=== PATIENT | female | born 1940 | race African-American/Black ===

== ENCOUNTER 2017-11-19 13:41 | Inpatient (IN) | payer OTHER, MEDICARE ==
[~2017-11-19] VITALS: Ht 167.6 cm; Wt 79.5 kg
[2017-11-19 14:21] VITALS: BP 157/74; PULSE 82; RESP 16; TEMP 97.8; O2SAT 100
--- NOTE | 2017-11-19 15:16 | RADRPT ---
EXAM DATE/TIME: 11/19/2017 14:51 [place] COMPARISON: No previous studies available for comparison. INDICATIONS : Patient states surgery on right ankle, after ankle has been in the boot for 1 month she has a wound o n ankle. Complains of pain and swelling. MEDICAL HISTORY : None. SURGICAL HISTORY : ORIF right ankle ENCOUNTER: Initial ACUITY: 1 month PAIN SCORE: 3/10 LOCATION: Right ankle FINDINGS: Three view exam was performed of the right ankle. There is evidence of previous internal fixation of the distal fibula and medial malleolus for previous fractures. No acute fracture or joint dislocation is demonstrated. There is good alignment at the mortise joint. There is nonspecific diffuse soft tis alfredo swelling around the ankle. The hardware is grossly intact. CONCLUSION: Diffuse soft tissue swelling. James White MD on November 19, 2017 at 15:13 Board Certified Radiologist. This report was verified electronically.
[2017-11-19 17:08] LABS: AUTOMATED NEUTROPHIL # 6.8 TH/MM3 (1.8-7.7); BASOPHIL # 0.1 TH/MM3 (0-0.2); BASOPHIL % 0.6 % (0.0-2.0); EOSINOPHIL # 0.2 TH/MM3 (0-0.4); EOSINOPHIL % 1.8 % (0.0-4.0); HEMATOCRIT 37.2 % (35.0-46.0); LYMPH % 20.8 % (9.0-44.0); MEAN CELL VOLUME 91.8 FL (80.0-100.0); MEAN CORPUSCULAR HEMOGLOBIN 29.7 PG (27.0-34.0); MEAN CORPUSCULAR HGB CONC 32.4 % (32.0-36.0); MEAN PLATELET VOLUME 8.1 FL (7.0-11.0); MONO % 6.4 % (0.0-8.0); MONOCYTE # 0.6 TH/MM3 (0-0.9); NEUT % 70.4 % (16.0-70.0); PLATELET COUNT 324 TH/MM3 (150-450); RED BLOOD COUNT 4.05 MIL/MM3 (4.00-5.30); RED CELL DISTRIBUTION WIDTH 15.7 % (11.6-17.2); WHITE BLOOD COUNT 9.7 TH/MM3 (4.0-11.0)
[2017-11-19 17:25] LABS: INTERNATIONAL NORMALIZED RATIO 1.1 RATIO
[2017-11-19 17:33] LABS: ALBUMIN 3.6 GM/DL (3.4-5.0); ALT (GPT) 16 U/L (10-53); AST (GOT) 14 U/L (15-37); BICARBONATE 28.8 MEQ/L (21.0-32.0); BLOOD UREA NITROGEN 9 MG/DL (7-18); CALCIUM 9.4 MG/DL (8.5-10.1); CHLORIDE 106 MEQ/L (98-107); CREATININE 0.64 MG/DL (0.50-1.00); GLOMERULAR FILTRATION RATE 109 ML/MIN (>89); GLUCOSE,RANDOM 79 MG/DL (74-106); SODIUM (NA) 143 MEQ/L (136-145)
[2017-11-19 17:36] LABS: ALKALINE PHOSPHATASE 107 U/L (45-117); TOTAL BILIRUBIN ADULT 0.8 MG/DL (0.2-1.0); TOTAL PROTEIN 7.1 GM/DL (6.4-8.2)
[2017-11-19] MEDS ORDERED: ceFAZolin 2 GM PREMIX 50 ML IV ONE (18:45)
--- NOTE | 2017-11-19 18:45 | PD ---
HPI Chief Complaint: Wound/Suture/Staple Re-Check Time Seen by Provider: 18:30 Travel History International Travel<30 days: No Contact w/Intl Traveler<30days: No Traveled to known affect area: No History of Present Illness HPI 77-year-old female patient presents to the ER today, had ankle ORIF done by Dr. Brambila a month ago for ankle fracture, and states that she had worn boots 2 days ago, and it was rubbing on the skin, and the wound opened up over her ORIF site. She had been seen by the office today and they told her to come straight to the hospital to be admitted for IV antibiotics. They also want Dr. Sullivan to be consulted on the case. She denies fevers or any other injuries. Modifying Factors: None Associated Signs & Symptoms: Wound at previous ORIF ankle fracture site Risk Factors: None PFSH Past Medical History Cardiovascular Problems: Yes Social History Tobacco Use: No Allergies-Medications (Allergen,Severity, Reaction): Coded Allergies: No Known Allergies (Unverified , 11/19/17) Review of Systems Except as stated in HPI: all other systems reviewed are Neg Physical Exam Narrative GENERAL: Pleasant elderly -[place] female patient currently in no acute distress. Awake and oriented 3. SKIN: Focused skin assessment warm/dry. HEAD: Atraumatic. Normocephalic. EYES: Pupils equal and round. No scleral icterus. No injection or drainage. ENT: No nasal bleeding or discharge. Mucous membranes pink and moist. NECK: Trachea midline. No JVD. CARDIOVASCULAR: Regular rate and rhythm. No murmur appreciated. RESPIRATORY: No accessory muscle use. Clear to auscultation. Breath sounds equal bilaterally. GASTROINTESTINAL: Abdomen soft, non-tender, nondistended. Hepatic and splenic margins not palpable. MUSCULOSKELETAL: No obvious deformities. No clubbing. No cyanosis. Bilateral pitting edema of the legs with the right greater than left. There is a 3 cm wound over the right ankle lateral malleolus. I do not see obvious hardware. NEUROLOGICAL: Awake and alert. No obvious cranial nerve deficits. Motor grossly within normal limits. Normal speech. PSYCHIATRIC: Appropriate mood and affect; insight and judgment normal. Data Data Last Documented VS Vital Signs Date Time Temp Pulse Resp B/P (MAP) Pulse Ox O2 Delivery O2 Flow Rate FiO2 11/19/17 14:21 97.8 82 16 157/74 (101) 100 Orders Orders Complete Blood Count With Diff (11/19/17 14:24) Comprehensive Metabolic Panel (11/19/17 14:24) Prothrombin Time / Inr (Pt) (11/19/17 14:24) Act Partial Throm Time (Ptt) (11/19/17 14:24) Blood Culture (11/19/17 14:24) Ankle, Complete ([id number]) (11/19/17 ) Cefazolin 2 Gm Premix (Ancef 2 Gm Premix (11/19/17 18:45) Consult Orthopedic (11/19/17 ) Admit Order (Ed Use Only) (11/19/17 18:40) Labs Laboratory Tests Test 11/19/17 16:15 White Blood Count 9.7 TH/MM3 Red Blood Count 4.05 MIL/MM3 Hemoglobin 12.0 GM/DL Hematocrit 37.2 % Mean Corpuscular Volume 91.8 FL Mean Corpuscular Hemoglobin 29.7 PG Mean Corpuscular Hemoglobin Concent 32.4 % Red Cell Distribution Width 15.7 % Platelet Count 324 TH/MM3 Mean Platelet Volume 8.1 FL Neutrophils (%) (Auto) 70.4 % Lymphocytes (%) (Auto) 20.8 % Monocytes (%) (Auto) 6.4 % Eosinophils (%) (Auto) 1.8 % Basophils (%) (Auto) 0.6 % Neutrophils # (Auto) 6.8 TH/MM3 Lymphocytes # (Auto) 2.0 TH/MM3 Monocytes # (Auto) 0.6 TH/MM3 Eosinophils # (Auto) 0.2 TH/MM3 Basophils # (Auto) 0.1 TH/MM3 CBC Comment DIFF FINAL Differential Comment Prothrombin Time 11.0 SEC Prothromb Time International Ratio 1.1 RATIO Activated Partial Thromboplast Time 25.5 SEC Blood Urea Nitrogen 9 MG/DL Creatinine 0.64 MG/DL Random Glucose 79 MG/DL Total Protein 7.1 GM/DL Albumin 3.6 GM/DL Calcium Level 9.4 MG/DL Alkaline Phosphatase 107 U/L Aspartate Amino Transf (AST/SGOT) 14 U/L Alanine Aminotransferase (ALT/SGPT) 16 U/L Total Bilirubin 0.8 MG/DL Sodium Level 143 MEQ/L Potassium Level 3.7 MEQ/L Chloride Level 106 MEQ/L Carbon Dioxide Level 28.8 MEQ/L Anion Gap 8 MEQ/L Estimat Glomerular Filtration Rate 109 ML/MIN [facility] Medical Decision Making Medical Screen Exam Complete: Yes Emergency Medical Condition: Yes Medical Record Reviewed: Yes Differential Diagnosis Open wound to the right ankle/previous ORIF site Narrative Course Lab work has been done and IV antibiotics were initiated in the ER after cultures have been drawn. Case is discussed with Dr. Redding for admission. Orthopedics Dr. Sullivan has been consulted for the case. Diagnosis Primary Impression: Open ankle wound Admitting Information Admitting Physician Requests: Admit Arlene Youssef MD Nov 19, 2017 18:45
[2017-11-19] MEDS ORDERED: SODIUM CHLOR 0.45% 1000 ML INJ 1,000 ML IV SCH (18:55)
[2017-11-19] MEDS ORDERED: SODIUM CHLORIDE 0.9% FLUSH 10 ML FLUSH IV FLUSH PRN (19:00)
[2017-11-19] MEDS ORDERED: SENNOSIDES 8.6 MG TAB PO PRN (19:00)
[2017-11-19] MEDS ORDERED: LACTULOSE SYRUP 20 GM/30 ML CUP PO PRN (19:00)
[2017-11-19] MEDS ORDERED: MAGNESIUM HYDROXIDE SUSP 30 ML CUP PO PRN (19:00)
[2017-11-19] MEDS ORDERED: BISACODYL 10 MG SUPP RECTAL PRN (19:00)
[2017-11-19] MEDS ORDERED: ONDANSETRON HCL 4 MG/2 ML VIAL IVP PRN (19:00)
[2017-11-19] MEDS ORDERED: NALOXONE HCL 0.4 MG/ML AMP IV PUSH PRN (19:00)
[2017-11-19] MEDS ORDERED: ASPI81CH7 CHEW (19:14)
[2017-11-19] MEDS ORDERED: PLAV75TA29 PO (19:14)
[2017-11-19] MEDS ORDERED: LISI2.5T3 PO (19:14)
[2017-11-19] MEDS ORDERED: CARV3.12 PO (19:14)
[2017-11-19] MEDS ORDERED: ATOR10TA15 PO (19:14)
[2017-11-19] MEDS ORDERED: Vancomycin Consult Pharmacy 1 EA OTHER SCH (19:15)
[2017-11-19 19:30] VITALS: BP 158/70; PULSE 71; RESP 16; O2SAT 100
[2017-11-19] MEDS: SODIUM CHLORIDE 0.9% FLUSH 10 ML FLUSH IV FLUSH SCH (21:00)
[2017-11-19] MEDS ORDERED: [UNRECOGNIZED DRUG - REMARK] SCH (21:15)
[2017-11-19 22:40] VITALS: BP 179/86; PULSE 79; RESP 20; TEMP 97.9; O2SAT 100
[2017-11-20 00:41] VITALS: BP 167/94; PULSE 81; RESP 20; TEMP 98.2; O2SAT 97
[2017-11-20] MEDS ORDERED: ENALAPRILAT 2.5 MG/2 ML VIAL IV PUSH PRN (01:15)
[2017-11-20] MEDS: CARVEDILOL 3.125 MG TAB PO SCH ×2 (01:22→08:42)
[2017-11-20] MEDS ORDERED: PILL SPLITTER OTHER PRN (01:30)
--- NOTE | 2017-11-20 01:38 | HHI.HP ---
[facility] Ryan Shepard, DO Admission Diagnosis Ankle wound/status post ankle ORIF Diagnoses: (1) Open ankle wound Chief Complaint: Right ankle wound s/p ORIF 10/06/17 Travel History International Travel<30 Days: No Contact w/Intl Traveler <30 Da: No Traveled to Known Affected Are: No History of Present Illness Ms. Cárdenas is a 77-year-old female with a past medical history of coronary artery disease status post stent placement [address] Parks, hypertension , and hyperlipidemia who presented to the emergency room by Dr. Sullivan for evaluation of an open wound to right ankle which had undergone ORIF following fracture on 10/06/2017. Diffuse soft tissue swelling noted around right ankle on x-ray in the ER. The patient is admitted to [facility] for medical management of comorbid conditions with consultation to orthopedics. The patient is seen in the ER overflow area. She reports having slipped while getting out of the shower and falling onto 11/19/2017 with subsequent right ankle fracture. She had ORIF of the right ankle on 10/06/[address] Brambila. [facility] and remained there for about 3 weeks. She was discharged home around the first of the month and was doing fairly well other than occasional pain in the lateral right malleoli region from friction caused by the orthotic boot she was wearing. She states she had a sock over the area never took the sock off until Saturday and at that time she looked at it became concerned. She went to see Dr. Sullivan on Sunday 11/[address] Brambila was not available. He advised that she come directly to the emergency room for IV antibiotics and possible removal of hardware. The patient denies any pain. Her original surgery was done at [facility]. She denies any fever, malaise, weakness, shortness of breath, chest pain, nausea, vomiting, or diarrhea. Review of Systems Except as stated in HPI: all other systems reviewed are Neg Past Family Social History Past Medical History Coronary artery disease status post stent placement Hypertension Hyperlipidemia Recent right ankle fracture Denies diabetes mellitus, COPD or respiratory problems, liver or kidney problems , DVT, PE, CVA, seizures, thyroid problems, or cancer . Past Surgical History Coronary artery disease status post stent placement [address] Parks Appendectomy Right ankle ORIF by Dr. Rodriguez 10/06/2017 . Reported Medications Reported Meds & Active Scripts Active Reported Atorvastatin (Atorvastatin Calcium) 10 Mg Tab Unknown Dose PO HS -not sure of exact dose will need to confirm in the morning Plavix (Clopidogrel Bisulfate) 75 Mg Tab 75 Mg PO DAILY Aspirin Children's (Aspirin) 81 Mg Chew 81 Mg CHEW DAILY Carvedilol 3.125 Mg Tab Unknown Dose PO DAILY -not sure of exact dose and will need to confirm in the morning Lisinopril 2.5 Mg Tab 2.5 Mg PO DAILY . Allergies: Coded Allergies: No Known Allergies (Unverified , 11/19/17) Family History Mother with hypertension No family history of coronary artery disease . Social History Tobacco: Denies Alcohol: Occasional glass of wine Illicit Drugs: Denies . Physical Exam Vital Signs Vital Signs Date Time Temp Pulse Resp B/P (MAP) Pulse Ox O2 Delivery O2 Flow Rate FiO2 11/20/17 00:41 98.2 81 20 167/94 (118) 97 11/19/17 22:40 97.9 79 20 179/86 (117) 100 11/19/17 19:30 71 16 158/70 (99) 100 Room Air 11/19/17 14:21 97.8 82 16 157/74 (101) 100 Physical Exam CONSTITUTIONAL: This is a well-nourished, well-developed very pleasant female patient, in no apparent distress. INTEGUMENTARY: Approximately 2" x 1 cm irregularly-shaped wound to the right lower extremity superior to the lateral malleolus; no erythema noted, no infection noted HEAD: Atraumatic. Normocephalic. EYES: No scleral icterus. No injection or drainage. ENT: Nose without bleeding, purulent drainage. NECK: Trachea midline. No JVD. CARDIOVASCULAR: Regular rate and rhythm without murmurs, gallops, or rubs. RESPIRATORY: Clear to auscultation. Breath sounds equal bilaterally. No wheezes , rales, or rhonchi. GASTROINTESTINAL: Abdomen soft, non-tender, nondistended. No guarding. MUSCULOSKELETAL: Extremities without clubbing, cyanosis. No calf tenderness. Negative Homans sign bilaterally. Right lower extremity with intact sensation, able to wiggle toes, capillary refill less than 3 seconds. Bilateral dorsalis pedis is +2. NEUROLOGICAL: Awake and alert. Motor and sensory grossly within normal limits. Normal speech. . Laboratory Laboratory Tests Test 11/19/17 16:15 White Blood Count 9.7 Red Blood Count 4.05 Hemoglobin 12.0 Hematocrit 37.2 Mean Corpuscular Volume 91.8 Mean Corpuscular Hemoglobin 29.7 Mean Corpuscular Hemoglobin Concent 32.4 Red Cell Distribution Width 15.7 Platelet Count 324 Mean Platelet Volume 8.1 Neutrophils (%) (Auto) 70.4 Lymphocytes (%) (Auto) 20.8 Monocytes (%) (Auto) 6.4 Eosinophils (%) (Auto) 1.8 Basophils (%) (Auto) 0.6 Neutrophils # (Auto) 6.8 Lymphocytes # (Auto) 2.0 Monocytes # (Auto) 0.6 Eosinophils # (Auto) 0.2 Basophils # (Auto) 0.1 CBC Comment DIFF FINAL Differential Comment Prothrombin Time 11.0 Prothromb Time International Ratio 1.1 Activated Partial Thromboplast Time 25.5 Blood Urea Nitrogen 9 Creatinine 0.64 Random Glucose 79 Total Protein 7.1 Albumin 3.6 Calcium Level 9.4 Alkaline Phosphatase 107 Aspartate Amino Transf (AST/SGOT) 14 Alanine Aminotransferase (ALT/SGPT) 16 Total Bilirubin 0.8 Sodium Level 143 Potassium Level 3.7 Chloride Level 106 Carbon Dioxide Level 28.8 Anion Gap 8 Estimat Glomerular Filtration Rate 109 Date/Time Source Procedure Growth Status 11/19/17 16:15 Blood Peripheral Aerobic Blood Culture Pending Received 11/19/17 16:15 Blood Peripheral Anaerobic Blood Culture Pending Received Result Diagram: 11/19/17 1615 11/19/17 1615 Imaging Last Impressions Ankle X-Ray 11/19/17 0000 Signed Impressions: Service Date/Time: Sunday, November 19, 2017 14:51 - CONCLUSION: Diffuse soft tissue swelling. James White MD . Caprini VTE Risk Assessment Caprini VTE Risk Assessment: Mod/High Risk (score >= 2) Caprini Risk Assessment Model Point Value = 1 Point Value = 2 Point Value = 3 Point Value = 5 Age 41-60 Minor surgery BMI > 25 kg/m2 Swollen legs Varicose veins or History of unexplained or recurrent spontaneous Oral contraceptives or hormone replacement Sepsis (< 1 month) Serious lung disease, including pneumonia (< 1 month) Abnormal pulmonary function Acute myocardial infarction Congestive heart failure (< 1 month) History of inflammatory bowel disease Medical patient at bed rest Age 61-74 Arthroscopic surgery Major open surgery (> 45 min) Laparoscopic surgery (> 45 min) Malignancy Confined to bed (> 72 hours) Immobilizing plaster cast Central venous access Age >= 75 History of VTE Family history of VTE Factor V Leiden Prothrombin [id number] Lupus anticoagulant Anticardiolipin antibodies Elevated serum homocysteine Heparin-induced thrombocytopenia Other congenital or acquired thrombophilia Stroke (< 1 month) Elective arthroplasty Hip, pelvis, or leg fracture Acute spinal cord injury (< 1 month) Prophylaxis Regimen Total Risk Factor Score Risk Level Prophylaxis Regimen 0-1 Low Early ambulation 2 Moderate Order ONE of the following: *Sequential Compression Device (SCD) *Heparin 5000 units SQ BID 3-4 Higher Order ONE of the following medications: *Heparin 5000 units SQ TID *Enoxaparin/Lovenox 40 mg SQ daily (WT < 150 kg, CrCl > 30 mL/min) *Enoxaparin/Lovenox 30 mg SQ daily (WT < 150 kg, CrCl > 10-29 mL/min) *Enoxaparin/Lovenox 30 mg SQ BID (WT < 150 kg, CrCl > 30 mL/min) AND/OR *Sequential Compression Device (SCD) 5 or more Highest Order ONE of the following medications: *Heparin 5000 units SQ TID (Preferred with Epidurals) *Enoxaparin/Lovenox 40 mg SQ daily (WT < 150 kg, CrCl > 30 mL/min) *Enoxaparin/Lovenox 30 mg SQ daily (WT < 150 kg, CrCl > 10-29 mL/min) *Enoxaparin/Lovenox 30 mg SQ BID (WT < 150 kg, CrCl > 30 mL/min) AND *Sequential Compression Device (SCD) Assessment and Plan Problem List: (1) Open ankle wound ICD Code: S91.009A - Unspecified open wound, unspecified ankle, initial encounter Status: Acute Assessment and Plan Ms. Cárdenas is a 77-year-old female with a past medical history of coronary artery disease status post stent placement [address] Parks, hypertension , and hyperlipidemia who presented to the emergency room by Dr. Sullivan for evaluation of an open wound to right ankle which had undergone ORIF following fracture on 10/06/2017. Diffuse soft tissue swelling noted around right ankle on x-ray in the ER. The patient is admitted to [facility] for medical management of comorbid conditions with consultation to orthopedics. Open wound to right ankle status post ORIF on 10/06/2017 -Vancomycin with pharmacy consult for therapeutic dosing and monitoring -Clean dry dressing to cover wound for now -Consultation to Dr. Sullivan, orthopedic surgeon, as requested Coronary artery disease status post stent 3 years ago -Hold Plavix and aspirin until after orthopedic evaluation in a.m. -Monitor IandO qshift -Continuous cardiac telemetry to monitor for arrhythmia -Patient unsure of carvedilol dose but will continue at 3.125 every 12 hours p.o. (lowest dose) and will monitor -will need to clarify carvedilol dose with patient's son in a.m. -We will also continue cheikh inhibitor lisinopril 2.5 mg p.o. daily Hypertension -Patient very concerned about her systolic blood pressure being in the 160s as it is normally in the 120s -Enalapril 2.5 mg IV every 8 hours as needed for systolic blood pressure greater than 160 or diastolic blood pressure greater than 95 -Continue carvedilol and lisinopril as above -Monitor trends and blood pressure and adjust treatment as indicated DVT prophylaxis -SCDs/teds to nonoperative leg -hold chemoprophylaxis due to possibility of hardware removal -await recommendations from orthopedic surgeon Discussed Condition With Dr. Coyle, patient, and RN Physician Certification 2 Midnight Certification Type: Admission for Inpatient Services Order for Inpatient Services The services are ordered in accordance with Medicare regulations or non- Medicare payer requirements, as applicable. In the case of services not specified as inpatient-only, they are appropriately provided as inpatient services in accordance with the 2-midnight benchmark. Estimated LOS (days): 3 days is the estimated time the patient will need to remain in the hospital, assuming treatment plan goals are met and no additional complications. Post-Hospital Plan: Not yet determined Problem Qualifiers (1) Open ankle wound: Carolyn Almanza Nov 20, 2017 01:38
[2017-11-20 04:00] VITALS: BP 149/72; PULSE 72; RESP 20; TEMP 98.3; O2SAT 100
[2017-11-20 06:00] LABS: AUTOMATED NEUTROPHIL # 5.2 TH/MM3 (1.8-7.7); BASOPHIL # 0.1 TH/MM3 (0-0.2); BASOPHIL % 0.8 % (0.0-2.0); EOSINOPHIL # 0.3 TH/MM3 (0-0.4); HEMOGLOBIN 10.4 GM/DL (11.6-15.3); LYMPH % 23.9 % (9.0-44.0); LYMPHOCYTE # 1.9 TH/MM3 (1.0-4.8); MEAN CELL VOLUME 91.1 FL (80.0-100.0); MEAN CORPUSCULAR HEMOGLOBIN 30.6 PG (27.0-34.0); MEAN CORPUSCULAR HGB CONC 33.6 % (32.0-36.0); MEAN PLATELET VOLUME 8.2 FL (7.0-11.0); MONO % 7.3 % (0.0-8.0); MONOCYTE # 0.6 TH/MM3 (0-0.9); PLATELET COUNT 252 TH/MM3 (150-450); RED BLOOD COUNT 3.41 MIL/MM3 (4.00-5.30); RED CELL DISTRIBUTION WIDTH 15.4 % (11.6-17.2)
[2017-11-20 06:15] LABS: ALKALINE PHOSPHATASE 96 U/L (45-117); ALT (GPT) 14 U/L (10-53); AST (GOT) 10 U/L (15-37); BICARBONATE 24.6 MEQ/L (21.0-32.0); BLOOD UREA NITROGEN 9 MG/DL (7-18); CALCIUM 8.7 MG/DL (8.5-10.1); CHLORIDE 109 MEQ/L (98-107); CREATININE 0.63 MG/DL (0.50-1.00); GLOMERULAR FILTRATION RATE 111 ML/MIN (>89); GLUCOSE,RANDOM 86 MG/DL (74-106); SODIUM (NA) 142 MEQ/L (136-145); TOTAL BILIRUBIN ADULT 0.7 MG/DL (0.2-1.0); TOTAL PROTEIN 6.1 GM/DL (6.4-8.2)
--- NOTE | 2017-11-20 06:50 | HHI.FF ---
Face to Face Verification Diagnosis: (1) Open ankle wound Nursing Nursing: Dressing changes (wet to dry dressing changes of right ankle BID) I have seen patient Wilma Cárdenas on 11/20/17. My clinical findings support the need for the requested home health care services because: Ltd mobility - disease progression I certify that my clinical findings support that this patient is homebound because: Post-op weakness Brady Gonzalez/Policy Cancellation Clerk PA Nov 20, 2017 06:50
[2017-11-20 07:55] VITALS: BP 159/85; PULSE 61; RESP 20; TEMP 98.1; O2SAT 100
[2017-11-20 08:00] VITALS: BP 137/73; PULSE 69; RESP 17; TEMP 98.6; O2SAT 100
[2017-11-20] MEDS: SODIUM CHLORIDE 0.9% FLUSH 10 ML FLUSH IV FLUSH SCH (08:43)
[2017-11-20] MEDS ORDERED: LISINOPRIL 5 MG TAB PO SCH (09:00)
[2017-11-20] MEDS ORDERED: VANCOMYCIN INJ 1,250 MG in SODIUM CHLOR 0.9% 250 ML INJ 250 ML IV SCH ×3 (18:00)
[2017-11-22] MEDS ORDERED: PHARMACY ORDERED LAB ONE (05:45)
== END 2017-11-20 12:10 | disposition home health service (06) | DRG 605 ==
LOC: NED 13:41 → NEDA 18:41 → NEDH 11-20 06:03
PROVIDERS: ADMIT Internal Medicine; ATTEND Internal Medicine
DX: S91.001A Unspecified open wound, right ankle, initial encounter (principal); I10 Essential (primary) hypertension; Z47.89 Encounter for other orthopedic aftercare; I25.10 Atherosclerotic heart disease of native coronary artery without angina pectoris; Z95.5 Presence of coronary angioplasty implant and graft; E78.5 Hyperlipidemia, unspecified
CPT/HCPCS: 73610; 80053; 85025; 85610; 85730; 87040; J0690; J3370; J7050